=== PATIENT | male | born 1985 | race Caucasian/White ===

== ENCOUNTER 2022-11-24 21:50 | Emergency (ER) | payer SELFPAY ==
[~2022-11-24] VITALS: Ht 170.2 cm; Wt 68.0 kg
--- NOTE | 2022-11-24 22:08 | NUR ---
Patient placed in room 2B
[2022-11-24] MEDS ORDERED: TDAP DIPH,PERTUSS,TET VAC/PF 0.5 ML DISP.SYRIN IM ONE ×2 (22:24→22:30)
[2022-11-24] MEDS ORDERED: CEphaleXIN 500 MG CAPSULE ONE (22:24)
[2022-11-24] MEDS ORDERED: CEPH500T PO (22:25)
[2022-11-24] MEDS ORDERED: CEphaleXIN 500 MG CAPSULE PO ONE (22:30)
--- NOTE | 2022-11-24 22:40 | NUR ---
Left thumb wound dressing performed. Wound cleansed with betadine and non-adhearing dressing applied.
--- NOTE | 2022-11-24 22:57 | NUR ---
Patient discharged to home in stable condition. Written and verbal after care instructions given. Patient verbalizes understanding of instructions. Stressed follow up or return to ER for worsening s/s.
[2022-11-24 23:25] VITALS: BP 130/77
== END 2022-11-24 22:57 | disposition home or self-care (01) ==
LOC: ER 21:50
DX: S61.012A Laceration without foreign body of left thumb without damage to nail, initial encounter (principal); F17.210 Nicotine dependence, cigarettes, uncomplicated; Z79.899 Other long term (current) drug therapy; W26.8XXA Contact with other sharp object(s), not elsewhere classified, initial encounter; Y93.89 Activity, other specified; Y92.89 Other specified places as the place of occurrence of the external cause; Y99.8 Other external cause status
CPT/HCPCS: 90715; A4663; J7040